=== PATIENT | male | born 1950 ===

== ENCOUNTER 2017-05-02 09:50 | Emergency (ER) | payer MEDICARE ==
--- NOTE | 2017-05-02 10:33 | C.PDOC ---
History Of Present Illness 66 y/o male with Hx of HTN presents to ED with complaints of fever and dysuria for 2 days. Patient states fever was 101 and was resolved with Tylenol, last taken 08:00am today. Patient denies nausea, vomiting, back pain or any other complaints at this time. Time Seen by Provider: 05/02/17 10:07 Chief Complaint (Nursing): Fever History Per: Patient History/Exam Limitations: no limitations Onset/Duration Of Symptoms: Days Current Symptoms Are (Timing): Still Present Past Medical History Reviewed: Historical Data, Nursing Documentation, Vital Signs Vital Signs: Last Vital Signs Temp 98.7 F 05/02/17 09:52 Pulse 98 H 05/02/17 09:52 Resp 20 05/02/17 09:52 BP 137/80 05/02/17 09:52 Pulse Ox 97 05/02/17 10:35 - Medical History PMH: HTN, Hypercholesterolemia Family History: States: No Known Family Hx - Social History Hx Alcohol Use: No Hx Substance Use: No - Immunization History Hx Tetanus Toxoid Vaccination: No Hx Influenza Vaccination: No Review Of Systems Except As Marked, All Systems Reviewed And Found Negative. Constitutional: Positive for: Fever. Negative for: Chills Genitourinary: Positive for: Dysuria. Negative for: Frequency Skin: Negative for: Rash Physical Exam - Physical Exam Additional Physical Exam Comments: Constitutional: No acute distress. Head: Normocephalic. Atraumatic. Eyes: PERRL. ENT: Moist mucous membranes. Neck: Supple. Cardiovascular: Regular rate. Radial pulse 2+ bilaterally. Chest: No tenderness. Respiratory: Clear to auscultation bilaterally. GI: Soft. Nontender. Nondistended. Back: No CVA tenderness. Musculoskeletal: No tenderness or swelling of extremities. Skin: No rash. Neurologic: Alert, no focal deficit. ED Course And Treatment O2 Sat by Pulse Oximetry: 97 (RA) Pulse Ox Interpretation: Normal Medical Decision Making Medical Decision Making: Plan: * UA UA positive. Patient appears well, normal vital signs, tolerating PO, has PMD follow up. Instructed to return to ED for worsening pain, fever, vomiting, dyspnea, back pain, or any other problem. 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 - Scribe Statement The provider has reviewed the documentation as recorded by the Xiomaraibbeau Kunz All medical record entries made by the Xiomaraibbeua were at my direction and personally dictated by me. I have reviewed the chart and agree that the record accurately reflects my personal performance of the history, physical exam, medical decision making, and the department course for this patient. I have also personally directed, reviewed, and agree with the discharge instructions and disposition.
[2017-05-02 10:36] LABS: RBC URINE 27 /hpf (0-3); URINE BACTERIA RARE (<OCC); URINE BILIRUBIN NEGATIVE (NEGATIVE); URINE BLOOD 3+ (NEGATIVE); URINE COLOR Yellow (YELLOW); URINE GLUCOSE (UA) 2+ mg/dL (Normal); URINE KETONE NEGATIVE (NEGATIVE); URINE LEUKOCYTE ESTERASE 3+ Leu/uL (Negative); URINE PROTEIN NEGATIVE (NEGATIVE); URINE UROBILINOGEN NORMAL mg/dL (0.2-1.0); WBC URINE 106 /hpf (0-5)
[2017-05-02 11:06] VITALS: BP 131/78; PULSE 90; RESP 14; TEMP 98.4; O2SAT 98
== END 2017-05-02 11:09 | disposition home or self-care (01) ==
LOC: C.ER 09:50
DX: N39.0 Urinary tract infection, site not specified (principal)

== ENCOUNTER 2018-09-11 08:24 | Outpatient (CLI) | payer MEDICARE | END 2018-09-11 08:25 | disposition home or self-care (01) | LOC: C.VASC 08:24 ==